=== PATIENT | male | born 1960 | race Caucasian/White ===

== ENCOUNTER → 2024-10-13 08:31 | Outpatient (REF) | payer OTHER, SELFPAY | LOC: RCS 08:31 | PROVIDERS: ATTENDING PHYSICIAN Family Medicine | DX: Z23 Encounter for immunization (principal); R01.1 Cardiac murmur, unspecified | CPT/HCPCS: 93306 ==

== ENCOUNTER → 2025-02-17 08:37 | Outpatient (REF) | payer OTHER, SELFPAY | LOC: PAVMRI 08:37 | PROVIDERS: ATTENDING PHYSICIAN Student in an Organized Health Care Education/Training Program; FAMILY PHYSICIAN Family Medicine | DX: I51.7 Cardiomegaly (principal) | CPT/HCPCS: 75561; 75565; A9585 ==